=== PATIENT | male | born 2000 | race Caucasian/White ===

== ENCOUNTER 2020-12-10 17:39 | Emergency (ER) | payer SELFPAY ==
--- NOTE | 2020-12-10 21:49 | ER ---
REASON FOR EMERGENCY ROOM VISIT: Left ankle injury. HISTORY: This 20-year-old came in accompanied by his girlfriend after having sustained what he thought was an ankle sprain this morning. He apparently was walking when he "rolled" his left ankle, which show what sounds like was a forcible inversion. He subsequently developed pain and swelling on the lateral aspect of his left ankle. He did not fall and denies any other injuries. He is able to walk, but it is painful and he is walking with a limp. PAST MEDICAL HISTORY: Noncontributory. MEDICATIONS: None. ALLERGIES: NONE. PHYSICAL EXAMINATION: EXTREMITIES: He has swelling about the lateral aspect of the left ankle around the lateral malleolus and just inferior to it. Passive range of motion reveals no crepitus. There is no sign of joint instability. Distal neurovascular status is intact. IMAGING: X-ray show no evidence of fracture or dislocation. IMPRESSION: Left ankle sprain. PLAN: I recommended icing it every 2 hours for 24 hours 15 minutes at a time while awake, to keep an Alepsh wrap on it, keep it elevated and stay off it the rest of the weekend. He was provided with crutches and was told to be nonweightbearing for at least the next 2 days and then to gradually gingerly begin to bear weight on it. He was told that in 3 days time, he may return to work assuming he will be able to tolerate ambulation; by then I would expect that he will, because he is able to ambulate now albeit with some discomfort. All questions were answered. He understands and agrees with this plan. JEANINE/ADAMARIS /[id number]
--- NOTE | 2020-12-12 07:42 | CR ---
Date of Service: 12/10/20 Clinical Data: trauma LEFT ANKLE: There is soft tissue swelling over the lateral malleolus. No acute fracture or dislocation. No focal lytic or blastic bone lesions. [id number] [facility]
== END 2020-12-10 20:24 | disposition home or self-care (01) ==
LOC: LB.ED 17:39
DX: S93.402A Sprain of unspecified ligament of left ankle, initial encounter (principal); X58.XXXA Exposure to other specified factors, initial encounter
CPT/HCPCS: 73610-LT; 99283-25

== ENCOUNTER 2022-01-27 02:51 | Emergency (ER) | payer MEDICAID, OTHER ==
[2022-01-27 04:01] LABS: TROPONIN I HIGH SENSITIVITY 7.8 pg/ml (<=60.4)
== END 2022-01-27 04:08 | disposition home or self-care (01) ==
LOC: LB.ED 02:51
DX: R07.9 Chest pain, unspecified (principal)
CPT/HCPCS: 36415; 71045; 80053; 84484; 85025; 93005; 93010; 99282; 99284